=== PATIENT | male | born 1955 | race Caucasian/White ===

== ENCOUNTER 2017-03-30 12:55 | Inpatient (IN) | payer OTHER ==
[2017-03-30 23:19] LABS: ADD MAN DIFF? NO
[2017-03-30 23:24] LABS: BASOPHILS % 0.3 % (0.0-2.0); EOSINOPHILS # 0.2 10^3/ul (0.0-0.5); EOSINOPHILS % 2.7 % (0.0-7.0); HEMATOCRIT 46.2 % (42.0-52.0); HEMOGLOBIN 14.8 g/dl (14.0-18.0); LYMPHOCYTES # 0.8 10^3/ul (0.8-2.9); LYMPHOCYTES % 10.4 % (15.0-51.0); MEAN CORPUSCULAR HEMOGLOBIN 30.3 pg (29.0-33.0); MEAN CORPUSCULAR VOLUME 94.7 fl (82.0-101.0); MEAN PLATELET VOLUME 10.1 fl (7.4-10.4); MONOCYTE # 1.1 10^3/ul (0.3-0.9); MONOCYTES % 14.8 % (0.0-11.0); NEUTROPHIL # 5.2 10^3/ul (1.6-7.5); NEUTROPHILS % 71.3 % (39.0-77.0); PLATELET COUNT 181 10^3/UL (140-415); RED BLOOD COUNT 4.88 10^6/ul (4.70-6.10); RED CELL DISTRIBUTION WIDTH 15.7 % (11.5-14.5)
[2017-03-30 23:24] LABS: WHITE BLOOD COUNT 7.3 10^3/ul (4.8-10.8)
[2017-03-30 23:42] LABS: ALANINE AMINOTRANSFERASE 407 IU/L (13-69); ALBUMIN 4.6 g/dl (3.3-4.9); ALBUMIN/GLOBULIN RATIO 1.02; ALKALINE PHOSPHATASE 164 IU/L (42-121); ANION GAP 19 (8-16); ASPARTATE AMINO TRANSFERASE 296 IU/L (15-46); BILIRUBIN,INDIRECT 0.6 mg/dl (0-1.1); BILIRUBIN,TOTAL 0.6 mg/dl (0.2-1.3); BLOOD UREA NITROGEN 36 mg/dl (7-20); CALCIUM 9.4 mg/dl (8.4-10.2); CARBON DIOXIDE 32 mmol/L (21-31); CHLORIDE 98 mmol/L (97-110); CREATININE 1.71 mg/dl (0.61-1.24); GLUCOSE 106 mg/dl (70-220); POTASSIUM 4.6 mmol/L (3.5-5.1); SODIUM 144 mmol/L (135-144); TOTAL PROTEIN 9.1 g/dl (6.1-8.1)
[2017-03-30 23:53] LABS: B-TYPE NATRIURETIC PEPTIDE 317 PG/ML (0-125); TROPONIN-I 0.047 ng/ml (0.00-0.12)
[2017-03-30] MEDS: morphine 4 MG/ML VIAL IV (23:58)
[2017-03-30] MEDS: ONDANSETRON 4 MG INJ IV (23:58)
[2017-03-31] MEDS ORDERED: ALBUTEROL/IPRATROPIUM (NEB) 3 ML AMP HHN (12:00)
[2017-03-31] MEDS ORDERED: DOCUSATE SODIUM 100 MG CAP PO (12:00)
[2017-03-31] MEDS ORDERED: MAGNESIUM HYDROXIDE 30ML CUP PO (12:00)
[2017-03-31] MEDS ORDERED: ALBUTEROL 18 GM INHALER INH (12:00)
[2017-03-31] MEDS ORDERED: morphine 2 MG INJ IV (12:00)
[2017-03-31] MEDS ORDERED: LORAZEPAM 2 MG INJ IV (12:00)
[2017-03-31] MEDS ORDERED: NACL 0.9% 3 ML SYG IV (12:00)
[2017-03-31] MEDS ORDERED: hydrALAzine 20 MG INJ IV (12:00)
[2017-03-31] MEDS ORDERED: NA PHOSPHATE/BIPHOS 133 ML ENEMA PR (12:00)
[2017-03-31] MEDS ORDERED: NITROGLYCERIN (SL) 0.4 MG TAB SL ×2 (12:00)
[2017-03-31 13:27] LABS: TROPONIN-I 0.036 ng/ml (0.00-0.12)
[2017-03-31 15:03] LABS: FREE T4 (FREE THYROXINE) 1.17 ng/dl (0.78-2.44)
[2017-03-31] MEDS: FUROSEMIDE 40 MG INJ IV (18:13)
[2017-03-31] MEDS: SALMETEROL/FLUTICASONE 250/50 INHA INH (21:00)
[2017-03-31] MEDS: TRIAMCINOLONE ACET 0.1% 15 GM CR TOP (21:00)
[2017-03-31 21:09] LABS: CREATINE KINASE 133 IU/L (23-200)
[2017-03-31 21:10] LABS: URIC ACID 10.6 mg/dl (3.1-7.9)
[2017-03-31 21:22] LABS: TROPONIN-I 0.047 ng/ml (0.00-0.12)
[2017-03-31] MEDS: POTASSIUM CHLORIDE (SR) 20 MEQ TAB PO (21:27)
[2017-03-31] MEDS: ACETAMINOPHEN 325 MG TAB PO (21:27)
[2017-03-31] MEDS: HEPARIN 5,000 UNIT/0.5 ML VIAL SC (21:29)
[2017-04-01] MEDS: FERROUS GLUCONATE (EC) 325 MG TAB PO ×3 (00:11→21:55)
[2017-04-01] MEDS: PANTOPRAZOLE (EC) 40 MG TAB PO (06:59)
[2017-04-01] MEDS: FUROSEMIDE 40 MG INJ IV (06:59)
[2017-04-01] MEDS: ACETAMINOPHEN 325 MG TAB PO (07:01)
[2017-04-01] MEDS: ONDANSETRON 4 MG INJ IV (07:40)
[2017-04-01 08:23] LABS: ADD MAN DIFF? NO
[2017-04-01 08:29] LABS: BASOPHILS % 0.3 % (0.0-2.0); EOSINOPHILS # 0.1 10^3/ul (0.0-0.5); EOSINOPHILS % 1.6 % (0.0-7.0); HEMATOCRIT 45.2 % (42.0-52.0); HEMOGLOBIN 14.2 g/dl (14.0-18.0); LYMPHOCYTES # 1.1 10^3/ul (0.8-2.9); LYMPHOCYTES % 15.7 % (15.0-51.0); MEAN CORPUSCULAR HEMOGLOBIN 30.3 pg (29.0-33.0); MEAN CORPUSCULAR HGB CONC 31.4 g/dl (32.0-37.0); MEAN CORPUSCULAR VOLUME 96.4 fl (82.0-101.0); MEAN PLATELET VOLUME 10.9 fl (7.4-10.4); MONOCYTE # 0.9 10^3/ul (0.3-0.9); MONOCYTES % 12.7 % (0.0-11.0); NEUTROPHIL # 4.7 10^3/ul (1.6-7.5); NEUTROPHILS % 69.4 % (39.0-77.0); PLATELET COUNT 159 10^3/UL (140-415); POSITIVE DIFF @See below; RED BLOOD COUNT 4.69 10^6/ul (4.70-6.10); RED CELL DISTRIBUTION WIDTH 15.1 % (11.5-14.5)
[2017-04-01 08:29] LABS: WHITE BLOOD COUNT 6.8 10^3/ul (4.8-10.8)
[2017-04-01] MEDS: ASPIRIN (EC) 81 MG TAB PO (08:55)
[2017-04-01] MEDS: COLCHICINE 0.6 MG TAB PO (08:55)
[2017-04-01] MEDS: POTASSIUM CHLORIDE (SR) 20 MEQ TAB PO ×2 (08:55→21:55)
[2017-04-01] MEDS: ASCORBIC ACID 500 MG TAB PO (08:55)
[2017-04-01] MEDS: ALLOPURINOL 300 MG TAB PO (08:56)
[2017-04-01] MEDS: TIOTROPIUM 18 MCG CAPSULE INHA DEV INH (08:56)
[2017-04-01] MEDS: TRIAMCINOLONE ACET 0.1% 15 GM CR TOP ×2 (08:56→21:00)
[2017-04-01] MEDS: SALMETEROL/FLUTICASONE 250/50 INHA INH ×2 (08:56→21:55)
[2017-04-01] MEDS: HEPARIN 5,000 UNIT/0.5 ML VIAL SC ×2 (08:57→22:00)
[2017-04-01] MEDS ORDERED: ASPIRIN 81 MG TAB PO (09:00)
[2017-04-01 09:01] LABS: CHOLESTEROL 113 mg/dl (100-200)
[2017-04-01 09:01] LABS: CHOL/HDL RATIO 4.5 RATIO; HDL CHOLESTEROL 25 mg/dl (30-78); LDL CHOLESTEROL,CALCULATED 51 mg/dl; TRIGLYCERIDES 183 mg/dl (0-149)
[2017-04-01 09:03] LABS: ANION GAP 20 (8-16); BLOOD UREA NITROGEN 49 mg/dl (7-20); CALCIUM 8.7 mg/dl (8.4-10.2); CARBON DIOXIDE 27 mmol/L (21-31); CHLORIDE 99 mmol/L (97-110); CREATININE 1.78 mg/dl (0.61-1.24); GLUCOSE 101 mg/dl (70-220); MAGNESIUM 2.2 mg/dl (1.7-2.5); PHOSPHORUS 4.6 mg/dl (2.5-4.9); POTASSIUM 4.3 mmol/L (3.5-5.1); SODIUM 142 mmol/L (135-144)
[2017-04-01] MEDS: HYDROCODONE/APAP (5/325) TAB PO (09:05)
[2017-04-01 09:31] LABS: THYROID STIMULATING HORMONE 0.596 MIU/L (0.465-4.680)
[2017-04-01 09:56] LABS: HEMOGLOBIN A1C 5.5 % (0-5.9)
[2017-04-01 11:40] LABS: ADD UMIC NO; UR ASCORBIC ACID 40 mg/dL (NEGATIVE); UR BILIRUBIN (Dip) NEGATIVE (NEGATIVE); UR BLOOD (Dip) NEGATIVE (NEGATIVE); UR CLARITY CLEAR (CLEAR); UR COLOR YELLOW (YELLOW); UR GLUCOSE (Dip) NEGATIVE (NEGATIVE); UR KETONES (Dip) NEGATIVE (NEGATIVE); UR LEUKOCYTE ESTERASE (Dip) NEGATIVE Leu/ul (NEGATIVE); UR MUCUS FEW /HPF (NONE SEEN); UR NITRITE (Dip) NEGATIVE (NEGATIVE); UR RBC 1 /HPF (0-5); UR SPECIFIC GRAVITY (Dip) 1.012 (1.003-1.030); UR SQUAMOUS EPITHELIAL CELL FEW /HPF (FEW); UR TOTAL PROTEIN (Dip) NEGATIVE (NEGATIVE); UR UROBILINOGEN (Dip) NEGATIVE (NEGATIVE); UR WBC 0 /HPF (0-5)
[2017-04-01 11:45] LABS: SODIUM,URINE RANDOM 46 mmol/L (30-90)
[2017-04-01 11:45] LABS: CREATININE,URINE RANDOM 92.26 mg/dl (20-370)
[2017-04-01] MEDS ORDERED: ALBUTEROL/IPRATROPIUM (NEB) 3 ML AMP HHN (14:30)
[2017-04-01] MEDS: FENOFIBRATE 48 MG TAB PO (16:39)
[2017-04-01] MEDS ORDERED: ALBUTEROL HFA 8 GM INHALER INH (16:59)
[2017-04-01] MEDS: FUROSEMIDE 40 MG TAB PO (21:57)
[2017-04-02] MEDS: PANTOPRAZOLE (EC) 40 MG TAB PO (05:32)
[2017-04-02] MEDS: ACETAMINOPHEN 325 MG TAB PO (05:38)
[2017-04-02 08:17] LABS: ADD MAN DIFF? NO
[2017-04-02 08:19] LABS: WHITE BLOOD COUNT 4.8 10^3/ul (4.8-10.8)
[2017-04-02 08:19] LABS: EOSINOPHILS # 0.2 10^3/ul (0.0-0.5); EOSINOPHILS % 4.1 % (0.0-7.0); HEMATOCRIT 39.2 % (42.0-52.0); HEMOGLOBIN 12.5 g/dl (14.0-18.0); LYMPHOCYTES # 0.9 10^3/ul (0.8-2.9); LYMPHOCYTES % 17.6 % (15.0-51.0); MEAN CORPUSCULAR HEMOGLOBIN 30.3 pg (29.0-33.0); MEAN CORPUSCULAR HGB CONC 31.9 g/dl (32.0-37.0); MEAN CORPUSCULAR VOLUME 94.9 fl (82.0-101.0); MEAN PLATELET VOLUME 9.9 fl (7.4-10.4); MONOCYTE # 0.6 10^3/ul (0.3-0.9); NEUTROPHIL # 3.2 10^3/ul (1.6-7.5); NEUTROPHILS % 66.1 % (39.0-77.0); PLATELET COUNT 133 10^3/UL (140-415); POSITIVE DIFF @See below; RED BLOOD COUNT 4.13 10^6/ul (4.70-6.10); RED CELL DISTRIBUTION WIDTH 14.8 % (11.5-14.5)
[2017-04-02] MEDS: TRIAMCINOLONE ACET 0.1% 15 GM CR TOP (08:37)
[2017-04-02 08:49] LABS: MAGNESIUM 2.2 mg/dl (1.7-2.5)
[2017-04-02 08:49] LABS: PHOSPHORUS 3.5 mg/dl (2.5-4.9)
[2017-04-02 08:56] LABS: ANION GAP 16 (8-16); BLOOD UREA NITROGEN 41 mg/dl (7-20); CALCIUM 8.2 mg/dl (8.4-10.2); CARBON DIOXIDE 29 mmol/L (21-31); CHLORIDE 98 mmol/L (97-110); CREATININE 1.44 mg/dl (0.61-1.24); GLUCOSE 101 mg/dl (70-220); POTASSIUM 3.8 mmol/L (3.5-5.1); SODIUM 139 mmol/L (135-144)
[2017-04-02] MEDS: FENOFIBRATE 48 MG TAB PO (09:02)
[2017-04-02] MEDS: COLCHICINE 0.6 MG TAB PO (09:03)
[2017-04-02] MEDS: ASPIRIN (EC) 81 MG TAB PO (09:03)
[2017-04-02] MEDS: FERROUS GLUCONATE (EC) 325 MG TAB PO (09:03)
[2017-04-02] MEDS: ALLOPURINOL 300 MG TAB PO (09:03)
[2017-04-02] MEDS: ASCORBIC ACID 500 MG TAB PO (09:03)
[2017-04-02] MEDS: FUROSEMIDE 40 MG TAB PO (09:03)
[2017-04-02] MEDS: POTASSIUM CHLORIDE (SR) 20 MEQ TAB PO (09:04)
[2017-04-02] MEDS: SALMETEROL/FLUTICASONE 250/50 INHA INH (09:04)
[2017-04-02] MEDS: HEPARIN 5,000 UNIT/0.5 ML VIAL SC (09:08)
[2017-04-03] MEDS ORDERED: INFLUENZA VIRUS VACCINE 0.5 ML (DISPENSING) IM* (09:00)
== END 2017-04-02 15:47 | disposition home or self-care (01) | DRG 291 ==
LOC: MS4 03-31 02:33 → E/R 12:55
DX: I13.0 Hypertensive heart and chronic kidney disease with heart failure and stage 1 through stage 4 chronic kidney disease, or unspecified chronic kidney disease (principal); I50.43 Acute on chronic combined systolic (congestive) and diastolic (congestive) heart failure; N17.9 Acute kidney failure, unspecified; J44.1 Chronic obstructive pulmonary disease with (acute) exacerbation; N18.3 Chronic kidney disease, stage 3 (moderate); Z68.43 Body mass index [BMI] 50.0-59.9, adult; M10.9 Gout, unspecified; R07.9 Chest pain, unspecified; E66.01 Morbid (severe) obesity due to excess calories; R50.9 Fever, unspecified
CPT/HCPCS: 36415; 71045; 80048; 80053; 80061; 81003; 82550; 83036; 83735; 83880; 84100; 84155; 84300; 84439; 84443; 84484; 84560; 85025; 87400; 93005; 93306; 94664; 96374; 96375; 97162; 99285-25

== ENCOUNTER 2018-08-23 08:33 | Emergency (ER) | payer OTHER | END 2018-08-23 09:49 | disposition home or self-care (01) | LOC: FTE 08:33 | DX: M21.612 Bunion of left foot (principal); I11.0 Hypertensive heart disease with heart failure; I50.9 Heart failure, unspecified; J44.9 Chronic obstructive pulmonary disease, unspecified; Z79.82 Long term (current) use of aspirin | CPT/HCPCS: 99282; Z7502 ==